=== PATIENT | male | born 1955 | race Caucasian/White ===

== ENCOUNTER → 2020-08-11 | Outpatient (CLI) | payer OTHER ==
[~2020-08-11] MED LIST: OLME1TAB35 PO; OMEP20CA16 PO; SIMV20TA18 PO
--- NOTE | 2020-08-11 12:54 | KCIC ---
Coronary artery calcium score dated August 11, 2020. No comparison available. Clinical Indication: Calcium screening. Hyperlipidemia. Hypertension. Technical factors: High resolution, computed tomography of the heart was performed with ECG gating and suspended respira tion. No contrast material was administered. Post processing was performed on the [facility] using diastolic phase images to measure the amount of coronary vascular calcium. Scoring was pe rformed utilizing the Agatston Method. PQRS compliance Statement One or more of the following individualized dose reduction techniques were utilized for this study: 1. Automated exposure control 2. Adjustment of the mA and/or kV according to patient size 3. Use of iterative reconstruction technique Results: Thorax: Small hiatal hernia is seen. There is a 2 mm noncalcified lateral right lower lobe lung nodul e. No other significant abnormality is identified in the lungs or mediastinum. Note that this CT exam is limited to the heart and adjacent structures. Coronary arteries: Left main coronary artery: 0 Left anterior descending coronary artery: 9.0 Left circumflex coronary artery: 0 Right coronary artery: 0 Total coronary artery calcium score: 9.0 Information is based on an analysis of the coronary arteries only. Calcium deposits do not correspond directly to the percentage of narrowing of the arteries. They do correlate directly to the amount of coronary artery plaque and to the risk of future coronary artery disease. These calcium deposits usu ally begin to form years before any symptoms develop. Early detection and modification of risk factor s, such as smoking and cholesterol intake, can slow the progress of coronary artery disease. A low score suggests a low likelihood of coronary artery disease, but does not exclude the possibilit y of significant coronary artery narrowing. The results should be discussed with your physician celestine g into account other risk factors such as age, gender, family history, diabetes, smoking or high chol esterol levels. Should you ever experience chest pain, difficulty breathing, discomfort radiating into your neck or a rm, or discomfort combined with lightheadedness, sweating, fainting or nausea, you should seek prompt medical attention. Conclusion: 1. Coronary atherosclerosis is present, limited amount. 2. Low risk of cardiovascular event. 3. Small hiatal hernia. 4. 2 mm right lower lobe lung nodule. If the patient is at high risk for malignancy, then a follow-up chest CT in 12 months is recommended as per Fleischner guidelines. If at low risk, no further follow -up is needed. Electronically signed by: Pedro Dale MD (08/11/2020 12:52 PM) [id number]
== END ==
LOC: KCIC CT 10:19
PROVIDERS: ATTEND Family Medicine
DX: Z13.6 Encounter for screening for cardiovascular disorders (principal); E78.5 Hyperlipidemia, unspecified; I10 Essential (primary) hypertension; I25.10 Atherosclerotic heart disease of native coronary artery without angina pectoris; K44.9 Diaphragmatic hernia without obstruction or gangrene; R91.1 Solitary pulmonary nodule
CPT/HCPCS: 75571

== ENCOUNTER → 2021-03-13 | Outpatient (CLI) | payer MEDICARE ==
--- NOTE | 2021-03-13 17:24 | KCIC ---
STUDY: 1. MRI of the right lower extremity without contrast - tibia/fibula 2. MRI of the right ankle without contrast INDICATION: Recent right ankle injury. Persistent swelling. COMPARISON: Right ankle radiographs 03/05/2021 TECHNIQUE: Multiplanar MR imaging of the right lower leg (tibia/fibula) and right ankle performed wit hout the use of intravenous or intra-articular contrast. FINDINGS: Right tibia/fibula: The proximal aspect of the tibia and fibula are not included in the [id number]. Bones: No fracture or stress reaction of the tibia or fibula shafts. Normal marrow signal. Musculature: No muscular edema or significant fatty infiltration/atrophy. No findings to indicate acu te or subacute fascial injury. Miscellaneous: Generalized subcutaneous edema. Intermittent thinning of the superficial soft tissues mainly along the tibia favored secondary to external compression. No ulcerative defect is apparent no ting clinical inspection would be more sensitive. No subfascial edema. Arterial flow voids are mainta ined. The study is not sensitive for detecting any potential venous thrombosis. Right ankle: Bones/cartilage: No acute/subacute fracture or marrow contusion. Degenerative edema/subchondral cysti c change at the third and fourth tarsometatarsal joints. Localized chondrosis at the lateral talar do me without subchondral edema or cystic change. Probable partial thickness chondrosis at additional lo cations. Minimal degenerative spurring at the tibial plafond and malleoli. Chronic spurring at the do rsum of the talar neck. No osseous coalition. Plantar calcaneal spur and thin Achilles insertion enth esophyte. Ligaments: Mildly thickened and heterogeneous but intact anterior/inferior tibiofibular ligament. The rest of the syndesmosis is unremarkable. At least partially disrupted ATFL. Mildly thickened but int act CFL. The PTFL is intact. Intact deltoid ligament complex. Intact spring and Lisfranc ligaments. Musculotendinous: Intact peroneus brevis and longus. Intact PTT, FDL and FHL. Mild Achilles tendinosi s seen as thickening mainly between 2 and 6 cm proximal to the insertion. Intact extensors. Small vol ume FHL tendon sheath fluid extending down to the knot of Yehuda and a smaller volume of fluid along t he tibialis anterior at the midfoot. Maintained bulk of the intrinsic foot musculature. Sinus Tarsi: Normal fatty signal. Tarsal tunnel: No mass or fluid collection. Plantar fascia: No findings to indicate active plantar fasciitis. Miscellaneous: Generalized subcutaneous edema at the ankle which is most confluent medially. Edema ex tends along the imaged foot primarily at the dorsal aspect. Scattered small volume joint fluid. IMPRESSION: Right Tibia/Fibula: 1. No recent fracture or stress reaction. No acute abnormality of the lower leg musculature or fasci a. 2. Nonspecific generalized subcutaneous edema. No subfascial edema. Right Ankle: 1. No recent fracture or marrow contusion. Partial thickness chondrosis at the ankle and localized ch ondrosis at the lateral talar dome without subchondral edema or cystic change. The most pronounced ar throsis is at the third and fourth tarsometatarsal joints where there is subchondral cystic change. 2. At least partially disrupted ATFL but this appears chronic. Sequela of prior sprain of the anterio r/inferior tibiofibular ligament. 3. No tendon tear or advanced tendinosis. Mild Achilles tendinosis with tendon thickening mainly betw een 2 and 6 cm proximal to the insertion. 4. Nonspecific subcutaneous edema circumferentially around the ankle, but most pronounced medially, a nd extending primarily along the dorsum of the foot. The generalized nature of the edema and lack of significant osseous or soft tissue abnormalities raises the question of edema unrelated to musculoske letal pathology. Electronically signed by: LEIF GARIBAY MD (03/13/2021 5:22 PM) [id number]
== END ==
LOC: KCIC MRI 13:48
PROVIDERS: ATTEND Podiatrist
DX: S93.431S Sprain of tibiofibular ligament of right ankle, sequela (principal); M19.072 Primary osteoarthritis, left ankle and foot; M76.61 Achilles tendinitis, right leg; M25.871 Other specified joint disorders, right ankle and foot; R60.0 Localized edema; X58.XXXS Exposure to other specified factors, sequela; M25.471 Effusion, right ankle
CPT/HCPCS: 73718; 73721

== ENCOUNTER → 2021-04-19 | Outpatient (CLI) | payer MEDICARE ==
[~2021-04-19] MED LIST changes: +PERFLUTREN PROTEIN-A MICROSPHR 0.22 MG/ML 3 ML VIAL. IV ONE
--- NOTE | 2021-04-19 17:39 | RAD ---
MR#: [id number] Date of Study: 04/19/2021 Ordering Physician: ELAINE HARDY, Referring Physician: ELAINE HARDY, Tech: Danny Fowler MBA, RDMS, RVT, RDCS, RTR APPROVED REPORT Patient Location : OUT-PATIENT Indications Lower Extremity Edema : Right Findings Limited grayscale images of the bilateral saphenofemoral junctions are grossly unremarkable. The giovanni ateral greater saphenous veins have been previously ablated. There is no evidence of reflux in the bilateral lesser saphenous veins Critical Notification Critical Value: No <Conclusion> 1. Prior successful GSV ablation bilaterally 2. Negative for reflux in the bilateral lesser saphenous veins Signed by : Garret Ray, Electronically Approved : 04/19/2021 17:38:45
--- NOTE | 2021-04-20 12:37 | CARD ---
MR#: [id number] Date of Study: 04/19/2021 Ordering Physician: ELAINE HARDY, Referring Physician: ELAINE HARDY Tech: Shayla Painter TOSHIA APPROVED REPORT EXAM: Two-dimensional and M-mode echocardiogram with Doppler and color Doppler. Other Information Quality : Technically LimitedHR: 73bpm Rhythm : NSR INDICATION Cardiac Disease: CAD Echo Enhancing Agent Indication: Endocardial border delineation Agent/Amount Used: Optison 2mL RISK FACTORS Hypertension Obesity Hyperlipidemia 2D DIMENSIONS Left Atrium(2D)4.1 (1.6-4.0cm)IVSd1.4 (0.7-1.1cm) Aortic Root(2D)3.4 (2.0-3.7cm)LVDd4.6 (3.9-5.9cm) LVOT Diameter2.5 (1.8-2.4cm)PWd1.4 (0.7-1.1cm) LVDs2.9 (2.5-4.0cm)FS (%) 36.8 % SV66.5 ml Aortic Valve AoV Peak Suraj.110.8cm/sAoV VTI21.1cm AO Peak GR.4.9mmHgAO Mean GR.2mmHg Mitral Valve MV E Mrehvwvs00.6cm/sMV DECEL [id number] MV A Qjaydvdm35.3cm/sE/A Ratio1.0 Pulmonary Valve PV Peak Axetnibu091.7cm/s Tricuspid Valve TR P. [id number]/sTR Peak Gr.31mmHg LEFT VENTRICLE The left ventricle is normal size. There is mild concentric left ventricular hypertrophy. The left ve ntricular systolic function is normal and the ejection fraction is within normal range. LV ejection fraction of 60-65 %. There is normal LV segmental wall motion. The left ventricular diastolic functio n and filling is normal for age. RIGHT VENTRICLE The right ventricle is normal size. There is normal right ventricular wall thickness. The right ventr icular systolic function is normal. ATRIA The left atrium size is normal. The right atrium size is normal. The interatrial septum is intact wit h no evidence for an atrial septal defect or patent foramen ovale as noted on 2-D or Doppler imaging. AORTIC VALVE The aortic valve is normal in structure and function. Doppler and Color Flow revealed trace to mild a ortic regurgitation. There is no significant aortic valvular stenosis. MITRAL VALVE The mitral valve is normal in structure and function. There is no evidence of mitral valve prolapse. There is no mitral valve stenosis. Doppler and Color-flow revealed trace mitral regurgitation. TRICUSPID VALVE The tricuspid valve is normal in structure and function. Doppler and Color Flow revealed mild tricusp id regurgitation. Estimated PAP 32 mmHg. There is no tricuspid valve stenosis. PULMONIC VALVE The pulmonary valve is normal in structure and function. Doppler and Color Flow revealed trace pulmon ic valvular regurgitation. GREAT VESSELS The aortic root is normal in size. The ascending aorta is normal in size. The IVC is normal in size a nd collapses >50% with inspiration. PERICARDIAL EFFUSION There is no evidence of significant pericardial effusion. Critical Notification Critical Value: No <Conclusion> The left ventricle is normal size. The left ventricular systolic function is normal and the ejection fraction is within normal range. LV ejection fraction of 60-65 %. There is mild concentric left ventricular hypertrophy. Doppler and Color Flow revealed trace to mild aortic regurgitation. There is no significant aortic valvular stenosis. Doppler and Color-flow revealed trace mitral regurgitation. Doppler and Color Flow revealed mild tricuspid regurgitation. Estimated PAP 32 mmHg. Signed by : Justo Christensen MD Electronically Approved : 04/20/2021 12:36:23
== END ==
LOC: ECHO 07:32
PROVIDERS: ATTEND Internal Medicine Cardiovascular Disease
DX: I08.2 Rheumatic disorders of both aortic and tricuspid valves (principal); I83.813 Varicose veins of bilateral lower extremities with pain; R60.9 Edema, unspecified
CPT/HCPCS: 93970; C8929; Q9956